=== PATIENT | female | born 1995 | race Caucasian/White ===

== ENCOUNTER → 2017-05-21 | Outpatient (CLI) | payer OTHER ==
[~2017-05-21] MED LIST: ACET325UDC; AMOCLA400S PO; IBUP800 PO
[2017-05-23 12:28] LABS: HPV Genotype 16 Not Detected (NOTDET); HPV Genotype 18 Not Detected (NOTDET)
[2017-05-29 08:01] LABS: HPV High Risk Other Not Detected (NOTDET)
== END | disposition home or self-care (01) ==
LOC: OLS 15:48
PROVIDERS: Nurse Practitioner Women's Health
DX: Z12.4 Encounter for screening for malignant neoplasm of cervix (principal)
CPT/HCPCS: 87624; G0123